=== PATIENT | female | born 1995 | race Caucasian/White ===

== ENCOUNTER 2022-06-18 15:24 | Inpatient (IN) | payer BC ==
[2022-06-18 15:45] VITALS: BMI 34.3
[2022-06-18] MEDS ORDERED: hydrALAZINE 20 MG/ML VIAL SLOW IVP PRN ×2 (16:01→16:54)
[2022-06-18] MEDS ORDERED: Ondansetron PF 4 MG/2 ML Vial IVP PRN ×2 (16:54→19:21)
[2022-06-18] MEDS ORDERED: HYDROcodone/Acetaminophen 5/325 mg Tablet PO PRN ×2 (16:54)
[2022-06-18] MEDS ORDERED: Misoprostol 200 MCG TAB PR PRN (16:54)
[2022-06-18] MEDS ORDERED: Ibuprofen 800 MG TAB PO PRN (16:54)
[2022-06-18] MEDS ORDERED: Butorphanol Tartrate 1 MG/ML VIAL SLOW IVP PRN (16:54)
[2022-06-18] MEDS ORDERED: Promethazine HCl 25 MG/ML VIAL IM PRN ×2 (16:54→19:21)
[2022-06-18] MEDS ORDERED: Lidocaine 1% (PF) 30 ML VIAL SC PRN (16:54)
[2022-06-18] MEDS ORDERED: Lactated Ringer's 1,000 ML IV PRN (16:54)
[2022-06-18] MEDS ORDERED: NS w/ Oxytocin 30 units 500 ML IV SCH (17:00)
[2022-06-18] MEDS ORDERED: Fentanyl 2 mcg/Bup 0.1% Cadd 100 ML ONE (18:31)
[2022-06-18 18:36] LABS: Hemoglobin 13.7 g/dL (12.0-15.5); Mean Corpuscular HGB CONC 34.2 g/dL (32.0-36.0); Mean Corpuscular Hemoglobin 29.8 pg (27.0-33.0); Mean Corpuscular Volume 87.2 fl (81.6-98.3); Platelet Count 249 10x3/uL (150-450); RBC Distribution Width 12.9 % (11.5-14.5); White Blood Cell (WBC) Count 11.9 10x3/uL (3.5-10.5)
[2022-06-18 19:05] LABS: HBSAg Index 0.23 S/CO (0-0.99); Hep B Surf Ag - L&D Non-Reactive S/CO (NonReactive)
[2022-06-18 19:06] LABS: Syphilis Antibody Nonreactive (Nonreactive); Syphilis Antibody Index 0.06 S/CO (<1.00 Non-Reactive)
[2022-06-18] MEDS ORDERED: Naloxone HCl 0.4 mg/ml Vial IVP PRN ×2 (19:21)
[2022-06-18] MEDS ORDERED: Lactated Ringer's 500 ML IV PRN (19:21)
[2022-06-18] MEDS ORDERED: Moisturizing Cream (Eucerin) 113 GM JAR TOP PRN (19:21)
[2022-06-18] MEDS ORDERED: diphenhydrAMINE 50 MG/ML VIAL IVP PRN (19:21)
[2022-06-18] MEDS ORDERED: ePHEDrine Sulfate 50 MG/10 ML VIAL SLOW IVP PRN (19:21)
[2022-06-18] MEDS ORDERED: Acetaminophen 325 MG TAB PO PRN (19:21)
[2022-06-18] MEDS ORDERED: Communication Order-Pharmacy FS SCH (19:30)
[2022-06-18] MEDS ORDERED: Fentanyl 2 mcg/Bupivacaine 0.1% Cassette 100 ML EPIDURAL SCH (19:30)
[2022-06-19] MEDS ORDERED: Lanolin Ointment 7 GM TUBE TOP PRN (06:53)
[2022-06-19] MEDS ORDERED: Bisacodyl 10 MG SUPP PR PRN (06:53)
[2022-06-19] MEDS ORDERED: Misoprostol 200 MCG TAB VAG PRN (06:53)
[2022-06-19] MEDS ORDERED: Milk Of Magnesia 30 ML UDCUP PO PRN (06:53)
[2022-06-19] MEDS ORDERED: HYDROcodone/Acetaminophen 5/325 mg Tablet PO PRN ×2 (06:53)
[2022-06-19] MEDS ORDERED: NS w/ Oxytocin 30 units 500 ML IV SCH (06:53)
[2022-06-19] MEDS ORDERED: Boostrix 0.5 ML (Tdap) VIAL (>/=7 yrs of age) IM ONE (06:53)
[2022-06-19] MEDS ORDERED: Benzocaine-Menthol 82.5 ML CAN TOP PRN (06:53)
[2022-06-19] MEDS ORDERED: hydrALAZINE 20 MG/ML VIAL SLOW IVP PRN (06:53)
[2022-06-19] MEDS: Ibuprofen 800 MG TAB PO SCH ×3 (08:11→19:50)
[2022-06-19] MEDS: Ferrous Sulfate 325 MG TAB PO SCH ×2 (08:12→15:46)
[2022-06-19] MEDS: Docusate 100 MG CAP PO SCH ×2 (08:12→19:50)
[2022-06-19] MEDS: Prenatal Vitamin 1 TAB PO SCH (09:09)
[2022-06-19 23:06] VITALS: TEMP 98
[2022-06-20] MEDS ORDERED: Ondansetron ODT 4 MG TAB PO SCH (05:00)
[2022-06-20] MEDS: Ibuprofen 800 MG TAB PO SCH (05:04)
[2022-06-20 07:23] VITALS: BP 128/77
[2022-06-20] MEDS: Ferrous Sulfate 325 MG TAB PO SCH (08:23)
[2022-06-20] MEDS: Prenatal Vitamin 1 TAB PO SCH (08:25)
[2022-06-20] MEDS: Docusate 100 MG CAP PO SCH (08:25)
== END 2022-06-20 12:45 | disposition home or self-care (01) | DRG 807 ==
LOC: CSHLD/OP 15:24 → CSHLD 21:04 → CSHPP 06-19 08:42
PROVIDERS: ADMIT Obstetrics & Gynecology; ATTEND Obstetrics & Gynecology
PROC: 10907ZC Drainage of Amniotic Fluid, Therapeutic from Products of Conception, Via Natural or Artificial Opening (ICD-10-PCS; 2022-06-18)
PROC: 10E0XZZ Delivery of Products of Conception, External Approach (ICD-10-PCS; principal; 2022-06-19)
DX: O13.4 Gestational [pregnancy-induced] hypertension without significant proteinuria, complicating childbirth (principal); Z37.0 Single live birth; Z3A.38 38 weeks gestation of pregnancy; O69.81X0 Labor and delivery complicated by cord around neck, without compression, not applicable or unspecified; Z82.49 Family history of ischemic heart disease and other diseases of the circulatory system; Z79.899 Other long term (current) drug therapy; Z79.82 Long term (current) use of aspirin; Z98.890 Other specified postprocedural states; Z91.018 Allergy to other foods
CPT/HCPCS: 51702; 85027; 86780; 86850; 86900; 86901; 87340; 99285; Q0162